=== PATIENT | female | born 1950 | race Caucasian/White ===

== ENCOUNTER 2017-11-07 16:16 | Emergency (ER) | payer OTHER ==
[~2017-11-07 16:16] MED LIST: AMOX-559 PO; LEVO50TA86 PO; PANT40TA65 PO; ZOLP-350 PO
[2017-11-07] MEDS ORDERED: DIPHTH/TETANUS/ACEL. PERTUSSIS IM ONLY ONE (16:25)
--- NOTE | 2017-11-07 16:26 | ER Report ---
History and Physical Time Seen By MD: 16:19 Hx. of Stated Complaint: pt sliced her L harden on a freshly cut shrub HPI/ROS CHIEF COMPLAINT: Laceration HISTORY OF PRESENT ILLNESS: This is a 66-year-old female presents to the emergency department for laceration. Patient states that she was walking up a hill today she tripped and fell into a gagandeep gonzalez lacerating the anterior part surface of her left lower leg. Patient states that she did irrigate the wound at home with tap water. Patient was concerned about her tetanus status and the wound therefore decided to come in for further evaluation. Patient denies any other complaints, no nausea or vomiting. No chest pain or shortness of breath. Allergies: Coded Allergies: No Known Drug Allergies (Unverified , 08/11/16) Home Meds Reported Medications Zolpidem Tartrate (AMBIEN) 10 Mg Tablet, 1 TAB PO QHS, TAB 08/11/16 Levothyroxine Sodium (LEVOTHYROXINE SODIUM) 50 Mcg Tablet, 50 MCG PO QDAY, TAB 08/11/16 Pantoprazole Sodium (PANTOPRAZOLE SODIUM) 40 Mg Tablet.dr, 40 MG PO QDAY, TAB.SR 08/11/16 Discontinued Scripts Amoxicillin/Pot Clav 875-125 Mg Tab (AUGMENTIN 875-125 TABLET) 1 Each Tablet, 1 TAB PO Q12H, #14 TAB Prov:ERICK HOWARD MD 08/11/16 Past Medical/Surgical History Patient has a past medical and surgical history of GERD, hypothyroidism, non- Hodgkin's lymphoma, chemotherapy with high-dose bone marrow rescue, cancer biopsy. Reviewed Nurses Notes: Yes Hx Substance Use Disorder: No Hx Alcohol Use: No Constitutional Vital Sign - Last 24 Hours 11/07/17 11/07/17 16:21 16:46 Temp 98.7 Pulse 102 94 Resp 18 B/P (MAP) 203/122 161/92 (115) Pulse Ox 95 94 O2 Delivery Room Air Room Air Physical Exam General appearance: Alert no distress. Respiratory: Chest is non tender, lungs are clear to auscultation. Cardiac: Regular rate and rhythm. Integumentary: There is a very superficial abrasion/laceration to the anterior surface of the left lower extremity. DIFFERENTIAL DIAGNOSIS: After history and physical exam differential diagnosis was considered for abrasion and laceration. Medical Decision Making ED Course/Re-evaluation ED Course The patient was admitted to room. A history and physical were obtained. The wound was irrigated and scrubbed. The patient's tetanus was updated. The wound was repaired with Dermabond and Steri-Strips. Patient was instructed not to apply bacitracin or antibiotic ointment to the Dermabond, monitor for signs of infection follow-up with her primary care provider with any other concerns or return to the ED for worsening symptoms. Patient was in agreement with this plan of care and discharged home. Procedure: Laceration repair. Verbal consent was obtained from the patient. The wound 5cm, very superficial laceration/abrasion on the anterior surface left lower extremity. The wound was scrubbed. There were no deep structures involved. No tendon injury was identified. The wound was repaired with Dermabond and Steri-Strips. The wound repair was simple. The procedure was performed by myself. Decision to Disposition Date: Nov 07, 2017 Decision to Disposition Time: 16:44 Depart Departure Latest Vital Signs Vital Signs Date Time Temp Pulse Resp B/P (MAP) Pulse Ox O2 Delivery O2 Flow Rate FiO2 11/07/17 16:46 94 161/92 (115) 94 Room Air 11/07/17 16:21 98.7 18 Impression: Primary Impression: Laceration Condition: Improved Disposition: HOME OR SELF-CARE Referrals: DUYEN BAI (PCP) Patient Instructions: Acute Wound Care (ED) Additional Instructions: Do not apply antibiotic ointment to the wound, it will remove the glue and steri strips. The glue will come off on it's own. Monitor for sings of infection, such as redness, swelling, drainage. If the wound appears infected or you have any concerns, follow up with your primary care provider, or return to the ED. YESI CONLEY [employer] DOCTOR [facility] Nov 07, 2017 16:26
[2017-11-07 16:46] VITALS: BP 161/92
== END 2017-11-07 16:50 | disposition home or self-care (01) ==
LOC: ER 16:21
DX: S81.812A Laceration without foreign body, left lower leg, initial encounter (principal); W45.8XXA Other foreign body or object entering through skin, initial encounter
CPT/HCPCS: 90471; 90715; 99283

== ENCOUNTER → 2018-05-23 | Outpatient (CLI) | payer MEDICARE, OTHER | LOC: LAB 10:31 | PROVIDERS: ATTEND Internal Medicine Endocrinology, Diabetes & Metabolism | DX: R82.994 Hypercalciuria (principal) | CPT/HCPCS: 36415; 82310; 82374; 82435; 82565; 82947; 84132; 84295; 84520 ==